=== PATIENT | male | born 1990 | race Caucasian/White ===

== ENCOUNTER 2018-10-03 19:55 | Emergency (ER) | payer OTHER ==
[2018-10-03 20:06] VITALS: RESP 18
[2018-10-03] MEDS ORDERED: PROPARACAINE 0.5% OPHTH DROPS 15 ML BTL LEFT EYE STA (20:14)
[2018-10-03] MEDS ORDERED: FLUORESCEIN STRIPS 1 MG STRIP RIGHT EYE ONE (20:14)
[2018-10-03] MEDS ORDERED: FLUORESCEIN LEFT EYE STA (20:26)
[2018-10-03] MEDS ORDERED: FLUORESCEIN STRIPS 1 MG STRIP LEFT EYE STA (20:31)
--- NOTE | 2018-10-03 20:57 | ED ---
Eye Problem HPI - General Chief complaint: Eye Problems Stated complaint: FB eye Time Seen by Provider: 10/03/18 20:13 Source: patient Limitations: no limitations - History of Present Illness Initial comments: Patient is a 27-year-old male who presents with a chief complaint of left eye pain after the end of his cigarette flew into his left eye. This happened about an hour prior to arrival. Patient states that he has pain some blurry vision. Patient denies any pain with movement of the eyes. no other complaints today, no other health problems reported. - Related Data Previous Rx's Medication Instructions Recorded chlordiazePOXIDE HCl [Librium] 25 mg PO QID #20 capsule 05/21/15 Ciprofloxacin Ophth Soln [Cipro 1 drops LEFT EYE Q4HR #1 bottle 10/03/18 0.3% Ophth Soln] Allergies Allergy/AdvReac Type Severity Reaction Status Date / Time acetaminophen [From Tylenol] Allergy Unknown Verified 10/03/18 20:06 aspirin Allergy Unknown Verified 10/03/18 20:06 ibuprofen [From Motrin] Allergy Unknown Verified 10/03/18 20:06 Review of Systems ROS Statement: Those systems with pertinent positive or pertinent negative responses have been documented in the HPI. ROS Other: All systems not noted in ROS Statement are negative. ENT: Reports: ear pain Past Medical History Past Medical History: No Reported History History of Any Multi-Drug Resistant Organisms: None Reported Additional Past Surgical History / Comment(s): oral surgery Past Psychological History: No Psychological Hx Reported Smoking Status: Current every day smoker Past Alcohol Use History: Occasional Past Drug Use History: None Reported General Exam Limitations: no limitations General appearance: alert, in no apparent distress Head exam: Present: atraumatic, normocephalic Eye exam: Present: normal appearance, PERRL, EOMI, conjunctival injection, other (exam under fluorescene shows a corneal abrasion at the 7 oclock position. no siddel sign. ) ENT exam: Present: normal exam Neck exam: Present: normal inspection Respiratory exam: Present: normal lung sounds bilaterally. Absent: respiratory distress, wheezes Cardiovascular Exam: Present: regular rate, normal rhythm GI/Abdominal exam: Present: soft. Absent: distended, tenderness Rectal exam: Present: deferred Extremities exam: Present: normal inspection, full ROM, normal capillary refill. Absent: tenderness, pedal edema, joint swelling, calf tenderness Back exam: Present: normal inspection Neurological exam: Present: alert, oriented X3, CN II-XII intact Psychiatric exam: Present: normal affect, normal mood Skin exam: Present: warm, dry, intact, normal color. Absent: rash Course Vital Signs 10/03/18 20:04 Temperature 98.4 F Pulse Rate 74 Respiratory 18 Rate Blood Pressure 151/81 O2 Sat by Pulse 100 Oximetry Medical Decision Making - Medical Decision Making The results of the chief complaint of left eye pain after having hamburger of the cigarette boyfriend desired. On initial evaluation, vital signs are stable , patient is in acute distress. Examination with fluorescein shows that the patient has a corneal abrasion the 7 o'clock position. Vision had 500 mL of irrigation through a Josue lens. On reevaluation, patient has intact vision and ocular movement. Patient stable for discharge. He was prescribed Cipro drops and referred to ophthalmology. Patient was instructed to follow-up in one to 2 days, return to the emergency department symptoms worsen or change. Disposition Clinical Impression: Corneal abrasion Disposition: HOME SELF-CARE Condition: Good Instructions: Corneal Abrasion (ED) Is patient prescribed a controlled substance at d/c from ED?: No Referrals: [facility],Clinic [Primary Care Provider] - 1-2 days Chandrika Joseph MD [STAFF PHYSICIAN] - 1-2 days
[2018-10-03 21:02] VITALS: BP 129/79; PULSE 78; TEMP 98
== END 2018-10-03 21:02 | disposition home or self-care (01) ==
LOC: EC 19:55
DX: S05.02XA Injury of conjunctiva and corneal abrasion without foreign body, left eye, initial encounter (principal); F17.200 Nicotine dependence, unspecified, uncomplicated; Z88.6 Allergy status to analgesic agent; Z88.8 Allergy status to other drugs, medicaments and biological substances; X58.XXXA Exposure to other specified factors, initial encounter
CPT/HCPCS: 99283

== ENCOUNTER 2020-12-21 20:25 | Emergency (ER) | payer OTHER ==
[2020-12-21 20:33] VITALS: BP 154/88; PULSE 73; RESP 18; TEMP 98
[2020-12-21] MEDS ORDERED: LIDOCAINE/EPINEPHR/TETRACAINE 5 ML BOTTLE TOPICAL ONE (20:41)
[2020-12-21] MEDS ORDERED: LIDOCAINE 1% INJ 10MG/ML (20 ML MDV) SQ ONE (20:41)
--- NOTE | 2020-12-21 20:52 | ED ---
General Adult HPI - General Chief complaint: Wound/Laceration Stated complaint: Lip lac Time Seen by Provider: 12/21/20 20:35 Source: patient Mode of arrival: ambulatory Limitations: no limitations - History of Present Illness Initial comments: 30-year-old male presents to the emergency department for a chief complaint of laceration to the lip. Patient states he was working on his car and went to pull something out of it was stuck. States when he finally got it out it hit him on the lip. Patient denies any injury to the teeth. Patient states his tetanus is up-to-date within the past 5 years. Patient denies any other injuries. Denies any eye irritation or injury to the eyes.Patient has no other complaints at this time including shortness of breath, chest pain, abdominal pain, nausea or vomiting, headache, or visual changes. - Related Data Previous Rx's Medication Instructions Recorded chlordiazePOXIDE HCl [Librium] 25 mg PO QID #20 capsule 05/21/15 Ciprofloxacin Ophth Soln [Cipro 1 drops LEFT EYE Q4HR #1 bottle 10/03/18 0.3% Ophth Soln] Allergies Allergy/AdvReac Type Severity Reaction Status Date / Time acetaminophen [From Tylenol] Allergy Unknown Verified 12/21/20 20:32 aspirin Allergy Unknown Verified 12/21/20 20:32 ibuprofen [From Motrin] Allergy Unknown Verified 12/21/20 20:32 Review of Systems ROS Statement: Those systems with pertinent positive or pertinent negative responses have been documented in the HPI. ROS Other: All systems not noted in ROS Statement are negative. Past Medical History Past Medical History: No Reported History (30-year-old) History of Any Multi-Drug Resistant Organisms: None Reported Past Surgical History: Orthopedic Surgery Additional Past Surgical History / Comment(s): oral surgery Past Psychological History: No Psychological Hx Reported Smoking Status: Current every day smoker Past Alcohol Use History: Occasional Past Drug Use History: None Reported General Exam Limitations: no limitations General appearance: alert, in no apparent distress Head exam: Present: atraumatic Eye exam: Present: normal appearance, PERRL, EOMI. Absent: scleral icterus, conjunctival injection ENT exam: Present: normal exam, mucous membranes moist. Absent: normal oropharynx (Patient has a 3 cm laceration noted to the anterior upper lip not involving the vermilion border. This is not through and through. There is no laceration on the inner upper lip. Teeth are intact, no fractures or loosening) Neck exam: Present: normal inspection, full ROM. Absent: tenderness Respiratory exam: Present: normal lung sounds bilaterally. Absent: respiratory distress, wheezes Cardiovascular Exam: Present: regular rate, normal rhythm, normal heart sounds GI/Abdominal exam: Present: soft, normal bowel sounds. Absent: distended, tenderness Course Vital Signs 12/21/20 20:29 Temperature 98.0 F Pulse Rate 73 Respiratory 18 Rate Blood Pressure 154/88 O2 Sat by Pulse 97 Oximetry Procedures - Laceration Laceration #1 Consent Obtained: verbal consent Indication: laceration Site: face Size (cm): 3 Description: linear Depth: simple, single layer Anesthetic Used: with epi (LET solution) Anesthesia Technique: local infiltration Pre-repair: wound explored, irrigated extensively Type of Sutures: nylon Size of Sutures: 5-0 Number of Sutures: 3 Technique: simple, interrupted Patient Tolerated Procedure: well, no complications Medical Decision Making - Medical Decision Making Vitals are stable. Patient is well-appearing. Patient has a laceration on his upper lip. This does not involve the vermilion border nor does it go through and through. This was cleaned thoroughly with saline pressure irrigation. Let solution was applied which numbed the area. 3 sutures were applied. I did not need to use lidocaine. Return parameters discussed including those for i nfection. Discussed following up with his doctor in one to 2 days. Discussed returning in 5 days for suture removal. Disposition Clinical Impression: Laceration Disposition: HOME SELF-CARE Condition: Good Instructions (If sedation given, give patient instructions): Laceration (ED), Care For Your Stitches (ED) Additional Instructions: Please keep the area clean. You may use gentle soap and water. Apply antibiotic ointment twice daily. Monitor for signs of infection such as spreading or streaking redness, drainage, or fever and return if these occur. Otherwise return in 5 days for suture removal. Is patient prescribed a controlled substance at d/c from ED?: No Referrals: [facility],Clinic [Primary Care Provider] - 1-2 days Time of Disposition: 21:36
== END 2020-12-21 21:40 | disposition home or self-care (01) ==
LOC: EC 20:25
DX: S01.511A Laceration without foreign body of lip, initial encounter (principal); F17.200 Nicotine dependence, unspecified, uncomplicated; Z88.6 Allergy status to analgesic agent; W22.8XXA Striking against or struck by other objects, initial encounter
CPT/HCPCS: 99282; 12013; J2001